=== PATIENT | male | born 1995 | race Two or more races ===

== ENCOUNTER 2016-11-19 23:42 | Emergency (ER) | payer OTHER ==
[~2016-11-19] VITALS: Ht 177.8 cm; Wt 72.8 kg
[2016-11-20 01:17] LABS: HEMATOCRIT 44.3 % (38.0-50.0); MCH 29.7 PG (29.0-34.0); MCHC 34.1 G/DL (30.0-36.0); MCV 87.2 FL (86-99); MEAN PLAT.VOLUME 11.2 uM^3 (9.0-12.4); PLATELET COUNT 203 K/uL (156-360); RBC DIS.WIDTH-CV 12.9 % (11.8-14.6); RBC DIS.WIDTH-SD 40.9 % (39-53); RED BLOOD COUNT 5.08 M/uL (4.00-5.50); WHITE BLOOD COUNT 8.1 K/uL (4.1-10.2)
[2016-11-20 01:25] LABS: CHLORIDE 103 mEq/L (99-109); POTASSIUM 3.5 mEq/L (3.7-5.4); SODIUM 139 mEq/L (136-147)
[2016-11-20 01:27] LABS: GLUCOSE 99 mg/dL (70-99)
[2016-11-20 01:28] LABS: ANION GAP 8 MEQ/L (2-14)
[2016-11-20 01:29] LABS: TOTAL BILIRUBIN 1.1 mg/dL (0.0-1.0)
[2016-11-20 01:31] LABS: ALKALINE PHOSPHATASE 72 IU/L (3-129); GFR ESTIMATE (CALCULATED) > 59 mL/min/
[2016-11-20 01:32] LABS: UREA NITROGEN (BUN) 17 mg/dL (9-23)
[2016-11-20 03:10] VITALS: BP 137/83
== END 2016-11-20 03:11 | disposition home or self-care (01) ==
LOC: EME 23:42
PROVIDERS: Physician Assistant
DX: R20.2 Paresthesia of skin (principal); R20.0 Anesthesia of skin; Z83.3 Family history of diabetes mellitus
CPT/HCPCS: 70450; 72125; 80053; 85027; 99281; 99284

== ENCOUNTER 2016-12-22 13:22 | Emergency (ER) | payer OTHER ==
[~2016-12-22] VITALS: Ht 180.3 cm; Wt 71.9 kg
[2016-12-22 14:52] LABS: CHLORIDE 107 mEq/L (99-109); SODIUM 141 mEq/L (136-147)
[2016-12-22 14:54] LABS: GLUCOSE 100 mg/dL (70-99)
[2016-12-22 14:55] LABS: ANION GAP 9 MEQ/L (2-14)
[2016-12-22 14:56] LABS: TOTAL BILIRUBIN 1.2 mg/dL (0.0-1.0)
[2016-12-22 14:57] LABS: ALKALINE PHOSPHATASE 64 IU/L (3-129)
[2016-12-22 14:58] LABS: GFR ESTIMATE (CALCULATED) > 59 mL/min/
[2016-12-22 14:59] LABS: HEMATOCRIT 43.8 % (38.0-50.0); MCH 29.1 PG (29.0-34.0); MCHC 33.6 G/DL (30.0-36.0); MCV 86.7 FL (86-99); MEAN PLAT.VOLUME 12.1 uM^3 (9.0-12.4); PLATELET COUNT 143 K/uL (156-360); RBC DIS.WIDTH-CV 12.7 % (11.8-14.6); RED BLOOD COUNT 5.05 M/uL (4.00-5.50); UREA NITROGEN (BUN) 20 mg/dL (9-23); WHITE BLOOD COUNT 13.6 K/uL (4.1-10.2)
[2016-12-22 14:59] LABS: ADD MIUA? NO; BILIRUBIN NEGATIVE; BLOOD NEGATIVE; COLOR YELLOW ((YELLOW)); GLUCOSE (STRIP) NEGATIVE; KETONES NEGATIVE; LEUKOCYTES NEGATIVE; NITRITE NEGATIVE; PROTEIN (STRIP) NEGATIVE; SPECIFIC GRAVITY 1.032 (1.000-1.030)
[2016-12-22 15:07] LABS: UCUL ADDED? NO
[2016-12-22] MEDS ORDERED: ULTRAM50 MG PO (18:11)
[2016-12-22] MEDS ORDERED: ZOFRAN ODT4 MG PO (18:11)
[2016-12-22 18:27] VITALS: BP 120/73
== END 2016-12-22 18:29 | disposition home or self-care (01) ==
LOC: EME 13:22
PROVIDERS: Nurse Practitioner Family
DX: R10.31 Right lower quadrant pain (principal); D72.829 Elevated white blood cell count, unspecified; R11.2 Nausea with vomiting, unspecified; J45.909 Unspecified asthma, uncomplicated; K59.09 Other constipation
CPT/HCPCS: 74177; 80053; 81003; 85027; 87651 90; 99281; 99285; J1885; J2405; J7030